=== PATIENT | male | born 1985 | race Caucasian/White ===

== ENCOUNTER 2023-01-21 15:46 | Emergency (ER) | payer OTHER, SELFPAY ==
[2023-01-21 16:00] VITALS: BP 145/95; PULSE 79; RESP 18; TEMP 36.7; O2SAT 98; BMI 26.8
--- NOTE | 2023-01-21 16:02 | ED.GENADULT ---
HPI - General Adult <Eloy Frausto PA-C - Last Filed: 01/21/23 18:33> General Chief complaint: Extremity Injury, Upper Stated complaint: Thinks tore bicep off Time Seen by Provider: 01/21/23 15:58 History of Present Illness HPI narrative: This is a 37-year-old male presents to the emergency department due to a right biceps injury. Patient states that he was moving a metal container when he felt a ?pop? in his right distal biceps area. He is reporting pain in this area. Denies any numbness or tingling in the distal extremities. He is still able to move well at his distal wrist and fingers but states decreased range of motion secondary pain at the right elbow. Denies any shoulder pain. Related Data Allergies Allergy/AdvReac Type Severity Reaction Status Date / Time No Known Drug Allergies Allergy Verified 01/21/23 16:08 Review of Systems <ANN Blue Last Filed: 01/21/23 18:33> Review of Systems Narrative: GENERAL: Denies chills, fatigue, malaise, fever, sweats. HEENT: Denies sinus pain, ear pain, sore throat, difficulty swallowing, dizziness. RESPIRATORY: Denies dyspnea, cough, wheezing, hemoptysis, sputum. CARDIOVASCULAR: Denies chest pain, palpitations, orthopnea, edema, GASTROINTESTINAL: Denies nausea, vomiting, abdominal pain, diarrhea, constipation, melena. : Denies dysuria, frequency, incontinence, hematuria, urinary retention. MUSCULOSKELETAL: Right distal bicep pain SKIN: Denies rash, skin lesions, or other NEUROLOGIC: Denies weakness, headache, numbness, change in speech, confusion, seizures, incoordination. PSYCHIATRIC: No concerning psychosocial issues. 12 point review of systems is negative except for those stated above Patient History <ANN Blue Last Filed: 01/21/23 18:33> Social History Smoking Status: Former smoker Exam <ANN Blue Last Filed: 01/21/23 18:33> Narrative Exam Narrative: GENERAL: Well-developed patient, in mild distress. HEAD: Atraumatic. Normocephalic. EYES: Pupils equal round and reactive. Extraocular motions intact. No scleral icterus. No injection or drainage. ENT: Nose without bleeding, purulent drainage. Throat without erythema, tonsillar hypertrophy or exudate. Airway patent. NECK: Trachea midline. Non tender CARDIOVASCULAR: Regular rate and rhythm without murmurs, gallops, or rubs. RESPIRATORY: Clear to auscultation. Breath sounds equal bilaterally. No wheezes, rales, or rhonchi. GASTROINTESTINAL: Abdomen soft, non-tender, nondistended. EXTREMITIES: Tenderness at the distal aspect of the biceps. Decreased flexion and extension secondary to pain. Neurovascularly intact distally. BACK: Nontender without deformity or crepitance. No flank tenderness. NEURO: AOx3. SKIN: No rash or erythema of visible areas Initial Vital Signs Initial Vital Signs: Vital Signs Temperature 98.1 F 01/21/23 16:00 Pulse Rate 79 01/21/23 16:00 Respiratory Rate 18 01/21/23 16:00 Blood Pressure 145/95 H 01/21/23 16:00 Pulse Oximetry 98 01/21/23 16:00 Oxygen Delivery Method Room Air 01/21/23 16:00 <DO Nya Egan Last Filed: 01/22/23 07:14> Initial Vital Signs Initial Vital Signs: Vital Signs Temperature 98.1 F 01/21/23 16:00 Pulse Rate 79 01/21/23 16:00 Respiratory Rate 18 01/21/23 16:00 Blood Pressure 145/95 H 01/21/23 16:00 Pulse Oximetry 98 01/21/23 16:00 Oxygen Delivery Method Room Air 01/21/23 16:00 Course <Eloy Frausto PA-C - Last Filed: 01/21/23 18:33> Orders Ordered: ED Orders 01/21/23 16:17 XR elbow RT min 3V Stat 01/21/23 16:37 MR elbow RT wo con Stat Vital Signs Vital signs: Vital Signs - 8 hr 01/21/23 16:00 Temperature 98.1 F Pulse Rate 79 Respiratory Rate 18 Blood Pressure 145/95 H Pulse Oximetry 98 Oxygen Delivery Method Room Air <DO Nya Egan Last Filed: 01/22/23 07:14> Orders Ordered: ED Orders 01/21/23 16:17 XR elbow RT min 3V Stat 01/21/23 16:37 MR elbow RT wo con Stat Vital Signs Vital signs: Vital Signs - 8 hr 01/21/23 16:00 Temperature 98.1 F Pulse Rate 79 Respiratory Rate 18 Blood Pressure 145/95 H Pulse Oximetry 98 Oxygen Delivery Method Room Air Medical Decision Making <Eloy Frausto PA-C - Last Filed: 01/21/23 18:33> Imaging Data R elbow MRI : Radiologist's Impression: [address] [address] Magnetic Resonance Report Signed Patient: Jama Thomas MR#: [id number] : 1985 Acct:[id number] Age/Sex: 37 / M Date of Service: 01/21/23 Loc: ED Accession Number: [id number] ?? Procedure: MR elbow RT wo con Ordering Provider: Eloy Frausto P.A-C PROCEDURE:? MR ELBOW RT WO CON ? INDICATIONS:? R elbow pain, concern for distal bicep tear.? Stat interpretation requested. ? TECHNIQUE:? Noncontrast coronal proton density fast spin echo and T2 fast spin echo with fat saturation, axial and sagittal T1 spin echo and T2 fast spin echo with fat saturation through the elbow.? ? COMPARISON:? None. ? FINDINGS:? Image quality:? Excellent.? ? There is complete avulsion of the biceps tendon from its insertion on the radius with retraction of the tendon and muscle belly into the distal arm.? Associated surrounding soft tissue edema in the anterior compartment.? No evidence of radial fracture.? No significant distal attached tendon. ? Marrow signal unremarkable throughout the exam.? No marrow edema or fracture.? Appropriate vascular flow voids are present. ? IMPRESSION:? ? Biceps tendon avulsion and retraction.? No evidence of osseous fracture ? ? ? Approved by: Demario Ko M.D. on 01/21/2023 at 17:01? Extremity x-ray #1: Radiologist's Impression: [address] [address] XRay Report Signed Patient: Jama Thomas MR#: [id number] : 1985 Acct:[id number] Age/Sex: 37 / M Date of Service: 01/21/23 Loc: ED Accession Number: [id number] ?? Procedure: XR elbow RT min 3V Ordering Provider: Eloy Frausto P.A-C PROCEDURE:? XR ELBOW RT MIN 3V ? INDICATIONS:? R elbow pain, possible distal bicep tear ? TECHNIQUE:? 3 views of the elbow were acquired.? ? COMPARISON:? None. ? FINDINGS:? ? Bones:? No fractures or dislocations.? No suspicious bony lesions.? ? Soft tissues:? No elbow joint effusion.? No suspicious soft tissue calcifications.? ? ? IMPRESSION:? Normal right elbow radiographs ? ? ? Approved by: Demario Ko M.D. on 01/21/2023 at 16:47? MDM Narrative Medical decision making narrative: MDM * differential diagnosis includes but not limited to right elbow fracture, soft tissue injury, distal bicep tendon injury * Prior records reviewed: Patient has not been here for similar complaints in the past. * My lab interpretation: None obtained * My imgaing interpretation: Right elbow MRI ordered which showed a complete distal bicep tendon avulsion * Clinical Decision Rules/Scores evaluated: None * Independent discussions with: None ED Course: This is a 37-year-old male presents to the emergency department due to a right biceps injury. Right elbow x-ray was negative for fracture but right elbow MRI ordered due to concern for distal bicep tendon injury. Also discussed the case with Dr. Reveles, orthopedist who recommended MRI and follow up in his clinic. MRI was ordered which showed a complete distal biceps tendon avulsion. Patient was placed in a sling and recommended follow up with Dr. Reveles. Shared Decision Making: Discussed plan with the patient who is comfortable with the plan. Social Considerations: None Disposition: Discharged to home Discharge Plan Departure Patient Disposition: Home Clinical Impression: Biceps tendon tear Activity Restrictions/Additional Instructions: Thank you for coming to the [facility] Emergency Department today. As we discussed on your MRI shows a distal biceps tendon tear. Please keep your arm in the sling and follow up with our orthopedist, Dr. Reveles, for further evaluation and management. I hope you feel better soon. Referrals: Roney Reveles MD [Physician] - (f/u distal bicep tendon avulsion, thank you! ) Stand Alone Forms: Patient Portal/API <Samra Seay DO - Last Filed: 01/22/23 07:14> Cosign ED Attending Carlos Attestation: I was immediately available in the department for consultation. Documentation has been reviewed.
--- NOTE | 2023-01-21 16:17 | DI.RAD.S_ITS ---
PROCEDURE: XR ELBOW RT MIN 3V INDICATIONS: R elbow pain, possible distal bicep tear TECHNIQUE: 3 views of the elbow were acquired. COMPARISON: None. FINDINGS: Bones: No fractures or dislocations. No suspicious bony lesions. Soft tissues: No elbow joint effusion. No suspicious soft tissue calcifications. IMPRESSION: Normal right elbow radiographs Approved by: Demario Ko M.D. on 01/21/2023 at 16:47
--- NOTE | 2023-01-21 16:37 | DI.MRI.S_ITS ---
PROCEDURE: MR ELBOW RT WO CON INDICATIONS: R elbow pain, concern for distal bicep tear. Stat interpretation requested. TECHNIQUE: Noncontrast coronal proton density fast spin echo and T2 fast spin echo with fat saturation, axial and sagittal T1 spin echo and T2 fast spin echo with fat saturation through the elbow. COMPARISON: None. FINDINGS: Image quality: Excellent. There is complete avulsion of the biceps tendon from its insertion on the radius with retraction of the tendon and muscle belly into the distal arm. Associated surrounding soft tissue edema in the anterior compartment. No evidence of radial fracture. No significant distal attached tendon. Marrow signal unremarkable throughout the exam. No marrow edema or fracture. Appropriate vascular flow voids are present. IMPRESSION: Biceps tendon avulsion and retraction. No evidence of osseous fracture Approved by: Demario Ko M.D. on 01/21/2023 at 17:01
== END 2023-01-21 18:42 | disposition home or self-care (01) ==
PROVIDERS: Emergency Provider Physician Assistant Medical
DX: S46.211A Strain of muscle, fascia and tendon of other parts of biceps, right arm, initial encounter (principal)
CPT/HCPCS: 73080; 73221; 99283; 99284